=== PATIENT | male | born 1945 | race Caucasian/White ===

== ENCOUNTER 2019-12-13 12:17 | Day surgery (SDC) | payer MEDICARE, OTHER, SELFPAY ==
--- NOTE | 2019-12-12 18:54 | HP.PCM_ITS ---
History and Physical Date of Admission: 12/13/19 HISTORY AND PHYSICAL ? Russ Smiley 1945 ? ? REFERRING PHYSICIAN: Miah Estrada DO ? CHIEF COMPLAINT: port removal and replacement ? HPI: The patient is a 74 year old male with a diagnosis of metastatic adenocarcinoma of rectum. Russ is currently scheduled to undergo chemotherap y and needs vascular access for treatment. The patient previously had a right- sided port which was removed, and then had a left-sided port placed. This port is still able to be utilized for treatments, however per patient it no longer works for blood draws. He was referred by oncology to have a new port placed. ? ? ? PAST MEDICAL HISTORY PAST MEDICAL HISTORY Diagnosis Date ? Adenocarcinoma of rectum (HCC) ? ? CAD (coronary artery disease) ? ? multiple stent placement ? CAD S/P percutaneous coronary angioplasty 2016 ? s/p 7 stents ? HLD (hyperlipidemia) ? ? Liver metastases (HCC) ? ? Malignant neoplasm of rectum (HCC) 11/10/2019 ? Malignant neoplasm of rectum (HCC) 11/10/2019 ? Malignant neoplasm of rectum (HCC) 11/10/2019 ? Prostate cancer (HCC) ? ? ? PAST SURGICAL HISTORY PAST SURGICAL HISTORY Procedure Laterality Date ? EXCISION OF RECTAL TUMOR, TRANSANAL ? 2017 ? Low anterior resection ? PROSTATE CA NO METS ? ? ? S/p resection ? ? ? CURRENT MEDICATIONS Current Outpatient Medications Medication Sig Dispense Refill ? ondansetron (ZOFRAN) 8 mg tablet Take 1 tablet by mouth every 8 hours as needed. 20 tablet 2 ? minocycline (MINOCIN, DYNACIN) 100 mg capsule Take 1 capsule by mouth twice daily. 60 capsule 2 ? MAGNESIUM ORAL Take 1 tablet by mouth three times a week. ? ? ? Minocycline HCl 100 mg tablet Take 1 tablet by mouth twice daily. 60 tablet 0 ? LISINOPRIL ORAL Take 2.5 mg by mouth once daily. ? ? ? metoprolol tartrate, short acting, (LOPRESSOR) 25 mg tablet Take 12.5 mg by mouth twice daily. ? cholecalciferol, vitamin D3, (VITAMIN D3 ORAL) Take 1,000 mcg by mouth every other day. ? ascorbic acid (VITAMIN C ORAL) Take by mouth once daily. ? ? ? potassium (POTASSIMIN ORAL) Take 200 mg by mouth three times a week. ? heparin 100 unit/mL injection NURSING USE ONLY: USE FOR IMPLANTED VASCULAR ACCESS DEVICE (IVAD) FLUSH. AMBULATORY/OUTPATIENT: PLEASE REORDER UPON HOSPITAL DISCHARGE May access implanted vascular access device (IVAD) as nee ded for treatment. Before de-accessing port, flush with 10-20ml normal saline and follow with 5 mL heparin (100 units/mL) (if no heparin allergy). De-access port on treatment completion. 5 mL 0 ? 0.9 % sodium chloride (0.9% NACL) NURSING USE ONLY: USED FOR IMPLANTED VASCULAR ACCESS DEVICE (IVAD) ACCESS. AMBULATORY/OUTPATIENT: PLEASE REORDER UPON HOSPITAL DISCHARGE May access implanted vascular access device (IVAD) as needed for treatment. Flush IVAD with 10-20 mL NS every 4 weeks and PRN when IVAD not in use. 1 Syringe 100 ? acetaminophen (TYLENOL) 500 mg tablet Take 1,000 mg by mouth as needed. ? aspirin 81 mg chewable tablet Take 81 mg by mouth once daily. ? loperamide (IMODIUM) 2 mg cap(s) TAKE 1-2 CAPS BY MOUTH AT ONSET OF DIARRHEA THEN EVERY 2 HOURS NEEDED UNTIL DIARRHEA RESOLVED. ? 0 ? Red Yeast Rice Extract 600 mg cap Take 600 mg by mouth daily at bedtime. ? ? ? Sennosides (SENNA) 8.6 mg cap Take 1 capsule by mouth as needed. ? ? ? nitroglycerin sublingual (NITROQUICK) 0.4 mg SL tablet Dissolve 0.4 mg under the tongue as needed. ? ? ? niacin (NIACIN) 500 mg tablet Take 500 mg by mouth daily at bedtime. ? ? ? No current facility-administered medications for this visit. ? ? ALLERGIES: Hydrocodone-Acetaminophen, Oxycodone-Acetaminophen, Celebrex [Celecoxib], Chlorhexidine, Gadoteridol, Prednisone, Tramadol, and Vicodin Tuss [Hydrocodone-Guaifenesin] ? PERSONAL HISTORY: SOCIAL HISTORY Social History ? Tobacco Use ? Smoking status: Former Smoker ? ? Years: 20.00 ? ? Types: Cigarettes, Pipe, Cigars ? ? Quit date: 03/26/1981 ? ? Years since quittin.7 ? Smokeless tobacco: Never Used Substance Use Topics ? Alcohol use: Never ? ? Frequency: Never ? Drug use: Never ? FAMILY HISTORY: FAMILY HISTORY No family history on file. ? REVIEW OF SYMPTOMS: The review of systems data was entered by the nurse and reviewed by me ? Nursing Notes: Otis Arora 11/24/2019 8:57 AM Signed REVIEW OF SYSTEMS: General: The patient denies fatigue, denies weight loss, denies weight gain, denies feeling hot, and denies feelings of cold. Eyes: The patient denies glaucoma, denies eye injury/surgery, does not wear glasses or contacts. Ear/Nose/Throat: The patient denies allergies, denies hayfever, denies ear infections, and denies bloody noses. Cardiovascular: The patient denies chest pain, denies heart disease, denies high blood pressure,NOTES cardiac stent, NOTES prior heart attack, denies irregular heart beat, denies high cholesterol, denies poor circulation, denies heart failure, other cardiac issues, denies claudication, denies cold feet, denies peripheral arterial stent. Respiratory: The patient denies tuberculosis, denies pneumonia, denies frequent cough, denies pulmonary embolism, denies shortness of breath, and denies coughing up blood. Gastrointestinal: The patient denies difficulty swallowing, denies acid reflux, denies ulcers, denies vomiting, denies jaundice/hepatitis, denies gallbladder problems, denies black or tarry stools, denies hemorrhoids, denies bleeding from rectum, denies diverticulitis, denies constipation, denies diarrhea, denies loss of stool control, and denies hernias. Kidney/Bladder: The patient denies kidney stones, denies urine infections, and denies bloody urine. Skin: The patient denies a history of skin cancer, denies bleeding/changing moles, and denies a history of skin rash. Neurologic: The patient denies a history of epilepsy/convulsions, denies headaches, denies head/spinal injuries, and denies stroke/TIA. Psychiatric: The patient denies psychiatric medications, denies depression, and denies voices, denies substance abuse. Endocrine: The patient denies thyroid disorders, denies diabetes, and denies hormonal problems. Hematologic: The patient denies a history of bruising, denies bleeding, and denies anemia, denies blood clots. Infections: The patient NOTES a history of measles and mumps, denies rheumatic fever, and denies sexually transmitted diseases. Musculoskeletal: The patient denies back pain/injury, NOTES back problems, denies sciatica, denies knee/foot trouble, NOTES arthritis, or denies gout. ? ? When was patient's last Mammogram screening? N/A ? Last Colonoscopy: per patient ? Otis Arora I have confirmed and edited as necessary, the PFSH and ROS obtained by others. ? PHYSICAL EXAMINATION: ? General: The patient is 74 year old male, well nourished, well hydrated in no acute distress. The patient is oriented to time, place, and person. ? VITALS: Blood pressure 147/77, pulse 82, weight 76.7 kg (169 lb). Body mass index is 29.01 kg/m?. ? HEENT: Normal cephalic, ataumatic, pupils are equally round, sclera are anicteric, mucous membranes are moist, oropharynx is clear. Neck has no masses, asymmetry or lymphadenopathy. Thyroid is unremarkable. ? Respiratory: Clear to auscultation and percussion. Normal respiratory excursion and pattern. ? Cardiac: Examination is regular rate and rhythm. ? Abdominal exam: Soft, nontender, with no palpable masses. No hepatosplenomegaly. No palpable hernias. ? Extremities: no clubbing, cyanosis or edema. No adenopathy. ? Other: left-sided portacath in place with dressing, no signs of infection ? ? LABORATORY VALUES: As Noted ? RADIOLOGIC STUDIES: As Noted ? ? IMPRESSION: Port functioning for treatments but no longer drawing back, patient and oncologist requesting new port PLAN: Dr. Jiang also independently evaluated the patient and participated in development of the following plan. ? Dr. Jiang recommended that patient first have port removal in office. She then plans to perform a new port a cath placement at [facility]. The planned surgical procedure was discussed extensively with the patient. The risks, benefits, anticipated outcomes and possible complications were mentioned. My staff has also explained the procedure in understandable terms and the patient was given the option to take printed material concerning the planned procedure. The patient had the opportunity to ask questions concerning the planned procedure. The patient freely consents to the planned procedure. ? Per Dr. Jiang, patient instructed to hold aspirin 3 full days prior to port placement ? Patient Weight Last 1 Encounter Wt Readings: Date: Wt: 11/23/2019 76.7 kg (169 lb) ? 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 Planned Anesthetic: MAC with local ? Diagnoses: (C20) Malignant neoplasm of rectum (HCC) (primary encounter diagnosis) (C20, C78.00) Rectal cancer metastasized to lung (HCC)
[2019-12-13] VITALS (7 sets, daily range): BP systolic 115–123; BP diastolic 68–78; PULSE 76–82; RESP 15–16; TEMP 36.5–36.7; O2SAT 98–100; BMI 26.9
[2019-12-13] MEDS: Lactated Ringers 1,000 ML 75 ML IV (12:00)
[2019-12-13] MEDS: Cefazolin 2 GM in 0.9% Normal Saline 100 ML IV (14:18)
--- NOTE | 2019-12-13 15:03 | OP.PCM_ITS ---
Report of Operation Date of Procedure: 12/13/19 Pre-Operative Diagnosis: lung cancer, need for IV access Post-Operative Diagnosis: same Surgery/Procedure Performed:: placement of permanent indwelling tunneled catheter in left subclavian vein with subcutaneous port Description of Surgical Findings:: normal left subclavian anatomy to SVC Type of Anesthesia:: Local MAC Anesthesiologist: Dagoberto Vasquez Specimen's removed: none Drains: none Estimated Blood Loss (mL): < 5 Fluids Replaced: 400 ml RL Description of Procedure: After informed consent was given, the patient was brought to the Operating Room. Appropriate time out protocol was followed. The patient was then placed in the supine position. The patient was then given IV conscious sedation for anesthesia. The patient?s upper chest and neck were then prepped with a surgical skin preparation and sterile surgical drapes were placed. After proper landmarks were ascertained, the skin at the upper left chest area was then infiltrated with 1% xylocaine with epinephrine. A needle trocar was then inserted into the left subclavian vein and there was good aspiration of venous blood. A wire was then threaded into the needle trocar and this was visualized under fluoroscopy to ensure that the wire was in the left subclavian vein. Once this was done, then the needle trocar was removed. A small skin marley was made with an 11 blade knife at the wire entrance site. The dilator with the introducer sheath attached was then placed over the wire into the left subclavian vein via the Seldinger technique and this was visualized under fluoroscopy. The dilator and sheath were in proper position as visualized by fluoroscopy in real time. The wire and dilator were then removed. The catheter was then threaded into the introducer sheath and was positioned with its tip at the junction of the superior vena cava and the right atrium as visualized under fluoroscopy in real time. I personally reviewed all of the above fluoroscopic images and noted that the positions of the wire and catheter were correct so that the next step could be conducted. The catheter was flushed with a heparin saline mixture prior to placement. A subcutaneous pocket was then created caudad to the catheter insertion site. A transverse skin incision was made after the skin and subcutaneous tissues were infiltrated with local anesthetic. Blunt dissection was then used to create a space large enough for placement of the subcutaneous port. Hemostasis was carefully controlled with electrocautery. The port was sutured to the subcutaneous fascia using vicryl suture at three sites. The catheter was then tunneled into the subcutaneous pocket. The excess catheter was transected. The catheter was then attached to the subcutaneous port using regulatory process manager?s guidelines. The port was then placed in the subcutaneous pocket and the sutures were ligated. The subdermal incisional sites were reapproximated with interrupted vicryl suture. The skin was reapproximated with monocryl suture in a subcuticular fashion. Cavilon and steristrips were used for reinforcement of the skin closure and a sterile opsite dressing was applied. Sponge, needle, and instrument count were verified and correct at the time of skin closure. The patient was brought to the Recovery Room in stable condition Grafts/Implants Used: Power Port 8Fr Lot [id number], [id number] - Complications none noted - Admit VTE Documentation VTE Present on Admission: Yes VTE Mechan Device Prophylaxis: SCD's
--- NOTE | 2019-12-13 15:17 | DCINST_ITS ---
Discharge Diet: No Restrictions Discharge Activity: Return to Normal Activity, May not drive while taking narcotic pain medications. Call your doctor if your incision/area has: Continuous Slow Oozing, Foul Smelling Discharge Call your doctor if you observe: Fever of 101 or Higher Additional Instructions: May take 600 mg ibuprofen (Motrin) and then in 3-4 hours, may take 650 mg acetaminophen (Tylenol), then in 3-4 hours may take 600 mg ibuprofen, then in 3- 4 hours may take 650 mg acetaminophen and so on for 2-3 days Leave dressings in place May get dressings wet in shower - do not scrub in the area and pat dry Do not soak - no tub baths/swimming May apply ice to area as tolerated for comfort Allergies/Adverse Reactions: Allergies celecoxib [From Celebrex] Allergy (Verified 12/13/19 12:36) Hives chlorhexidine Allergy (Verified 12/13/19 12:36) PT UNSURE OF REACTION chemical burn on skin hydrocodone Allergy (Verified 12/13/19 12:36) Hives prednisone Allergy (Verified 12/13/19 12:36) Nausea/Vom/Diarrhea dizzy, sweats tramadol Allergy (Verified 12/13/19 12:36) PT UNSURE OF REACTION hallucination oxycodone Adverse Reaction (Verified 12/13/19 12:36) Nausea/Vom/Diarrhea Medications to take at Discharge Acetaminophen [Tylenol Extra Strength] 500 - 1,000 mg PO Q6H PRN PRN 12/02/19 Aspirin [Aspirin EC] 81 mg PO DAILY 12/02/19 Lisinopril 2.5 mg PO DAILY 12/02/19 Loperamide [Imodium] 2 mg PO PRN PRN 12/02/19 Magnesium Amino Acid Chelate [Magnesium] 120 mg PO MOWEFR 12/02/19 Metoprolol Tartrate [Lopressor (Beta Abbie)] 25 mg PO QHS 12/02/19 Minocycline HCl 100 mg PO DAILY 12/02/19 Niacin 500 mg PO QHS 12/02/19 Nitroglycerin [Nitrostat] 0.4 mg SL PRN PRN 12/02/19 Ondansetron [Zofran] 8 mg PO Q8H PRN PRN 12/02/19 Potassium 200 mg PO SUTUTH 12/02/19 Pyridoxine HCl [Vitamin B-6] 100 mg PO DAILY 12/02/19 Senna [Senokot] 1 tab PO DAILY PRN 12/02/19 Primary Care Physician: JANNY PENNY [Other] Test Results: Test results from this visit will be discussed in further detail at your follow- up appointment, if applicable. Please Follow Up With: Martha Jiang MD - call if any problems and/or concerns When: as per needed
--- NOTE | 2019-12-13 15:20 | RAD_ITS ---
STUDY: X-RAY CHEST REASON FOR EXAM: Male, 74 years old. Line placement TECHNIQUE: Single AP portable view of the chest. COMPARISON: None. FINDINGS: A left-sided Port-A-Cath has been inserted. The tip is at the junction of the superior vena cava and right atrium. The lungs are clear and expanded. There is no demonstrated pleural abnormality. Normal size heart. Normal mediastinum and amina. Normal visualized pulmonary arteries. There is atherosclerotic tortuosity of the aortic arch and descending thoracic aorta. Normal visualized thoracic spine. Normal visualized ribs, clavicles, and shoulders. There is no demonstrated abnormality of the visualized soft tissue structures of the upper abdomen. RAD/CXR for Line Placement IMPRESSION: The tip of the tyra catheter is at the junction of the superior vena cava and right atrium. Electronically Signed: Jas Kern, at 15:43 EDT , Service support ,
== END 2019-12-13 16:25 | disposition home or self-care (01) ==
LOC: SDC 12:20 → AC 12:23
PROVIDERS: Anesthesiology; Referring Provider Surgery; Visit Provider Surgery
PROC: (CPT 36561; principal; 2019-12-13 14:00)
DX: Z45.2 Encounter for adjustment and management of vascular access device (principal); Z11.59 Encounter for screening for other viral diseases; C20 Malignant neoplasm of rectum; I25.10 Atherosclerotic heart disease of native coronary artery without angina pectoris; E78.5 Hyperlipidemia, unspecified; C78.7 Secondary malignant neoplasm of liver and intrahepatic bile duct; I10 Essential (primary) hypertension; C78.00 Secondary malignant neoplasm of unspecified lung; I25.2 Old myocardial infarction; Z85.46 Personal history of malignant neoplasm of prostate; Z79.899 Other long term (current) drug therapy; Z79.82 Long term (current) use of aspirin; Z87.891 Personal history of nicotine dependence; Z86.718 Personal history of other venous thrombosis and embolism
CPT/HCPCS: 36561; 71045; 77001; 87635; 94799; J7120; C1788; U0003